=== PATIENT | male | born 1970 | race Caucasian/White ===

== ENCOUNTER 2016-09-26 06:13 | Emergency (ER) | payer MEDICARE, OTHER ==
[2016-09-26 06:18] VITALS: BP 157/103; PULSE 103; RESP 20; TEMP 97.2
[2016-09-26] MEDS ORDERED: LORazepam 2 MG/ML SYRINGE IM STA (06:24)
--- NOTE | 2016-09-26 06:26 | ED ---
General Adult HPI - General Chief complaint: Anxiety Stated complaint: poss overdose Time Seen by Provider: 09/26/16 06:20 Source: patient, RN notes reviewed Mode of arrival: ambulatory Limitations: no limitations - History of Present Illness Initial comments: Is a 46-year-old male who presents to the emergency department after having taken some acid approximately 2 hours prior to arrival. Patient states now he feels like he is having a panic attack and he can't settle down. Patient states he hasn't done this since he was a kid. Patient denies any other drug use or alcohol use tonight. Patient denies any physical complaints today. Patient denies headache patient denies numbness weakness. Patient denies any chest pain palpitations difficulty breathing shortness of breath per patient denies abdominal pain patient states he was mildly nauseous but has had no vomiting or diarrhea. Patient denies any other problems except feeling very anxious. - Related Data Home Medications Medication Instructions Recorded Confirmed Hydrocodone/Acetaminophen [[place] 1 tab PO Q6HR PRN 09/26/16 09/26/16 5-325] metFORMIN HCL [Glucophage] 500 mg PO TID 09/26/16 09/26/16 Allergies Allergy/AdvReac Type Severity Reaction Status Date / Time No Known Allergies Allergy Verified 09/26/16 06:18 Review of Systems ROS Statement: Those systems with pertinent positive or pertinent negative responses have been documented in the HPI. ROS Other: All systems not noted in ROS Statement are negative. Past Medical History Past Medical History: Diabetes Mellitus, Hypertension History of Any Multi-Drug Resistant Organisms: None Reported Past Surgical History: No Surgical Hx Reported Past Psychological History: Anxiety, Bipolar, Depression Smoking Status: Current every day smoker Past Alcohol Use History: None Reported Past Drug Use History: Marijuana General Exam - General Exam Comments Initial Comments: GENERAL: Patient is well-developed and well-nourished. Patient is nontoxic and well- hydrated and is in mild distress. ENT: Neck is soft and supple. No significant lymphadenopathy is noted. Oropharynx is clear. Moist mucous membranes. Neck has full range of motion without eliciting any pain. EYES: The sclera were anicteric and conjunctiva were pink and moist. Extraocular movements were intact and pupils were equal round and reactive to light. Eyelids were unremarkable. PULMONARY: Unlabored respirations. Good breath sounds bilaterally. No audible rales rhonchi or wheezing was noted. CARDIOVASCULAR: There is a regular rate and rhythm without any murmurs gallops or rubs. ABDOMEN: Soft and nontender with normal bowel sounds. No palpable organomegaly was noted. There is no palpable pulsatile mass. SKIN: Skin is clear with no lesions or rashes and otherwise unremarkable. NEUROLOGIC: Patient is alert and oriented x3. Cranial nerves II through XII are grossly intact. Motor and sensory are also intact. Normal speech, volume and content. Symmetrical smile. MUSCULOSKELETAL: Normal extremities with adequate strength and full range of motion. No lower extremity swelling or edema. No calf tenderness. LYMPHATICS: No significant lymphadenopathy is noted PSYCHIATRIC: Normal psychiatric evaluation. Normal interpersonal interactions appears functionally intact in deals appropriately with others. No signs of depression. Moderate anxiety Limitations: no limitations Course Vital Signs 09/26/16 06:15 Temperature 97.2 F L Pulse Rate 103 H Respiratory 20 Rate Blood Pressure 157/103 O2 Sat by Pulse 98 Oximetry Medical Decision Making - Medical Decision Making EKG shows normal sinus rhythm at 95 bpm. It was on a 42 QRS is 96 QT interval 362 QTC is 454. Patient EKG shows no ST segment elevation or depression or T- wave abdomen is noted. Disposition Clinical Impression: Acute anxiety Disposition: HOME SELF-CARE Instructions: Generalized Anxiety Disorder (ED) Referrals: Joe Tiwari MD [Primary Care Provider] - 1-2 days Time of Disposition: 06:26
[2016-09-26] MEDS ORDERED: LORazepam 1 MG TAB PO STA (06:27)
== END 2016-09-26 06:46 | disposition home or self-care (01) ==
LOC: EC 06:13
DX: F41.9 Anxiety disorder, unspecified (principal); E11.9 Type 2 diabetes mellitus without complications; Z79.84 Long term (current) use of oral hypoglycemic drugs; F17.200 Nicotine dependence, unspecified, uncomplicated
CPT/HCPCS: 99283; 96372; 93005; J2060

== ENCOUNTER 2023-11-12 15:59 | Emergency (ER) | payer MEDICARE, OTHER ==
[2023-11-12 16:42] VITALS: TEMP 98.6
--- NOTE | 2023-11-12 17:20 | ED ---
General Adult HPI - General Chief complaint: Dental/Oral Stated complaint: L Dental Abscess Time Seen by Provider: 11/12/23 16:35 Source: patient, RN notes reviewed, old records reviewed Mode of arrival: ambulatory Limitations: no limitations - History of Present Illness Initial comments: Is a 53-year-old male who presents emergency department complaining of chronic tooth pain. Sent here from urgent care for possible CT imaging of the face. He has no fevers or chills. No other acute complaints at this time. Pain has been ongoing for the last few months. Has not seen a dentist. Previously had swelling as well as signs of an abscess on the left side however he has had multiple courses of antibiotics and currently has no evidence of this at this time. States the left upper molar in the back has intermittent pain that is sensitive to warm and cold as well as to touch. Radiation of the pain towards the jaw. No other acute complaints at this time. Denies any headaches, blurry vision, congestion. Presents for further evaluation. - Related Data Home Medications Medication Instructions Recorded Confirmed Hydrocodone/Acetaminophen [[place] 1 tab PO Q6HR PRN 09/26/16 09/26/16 5-325] metFORMIN HCL [Glucophage] 500 mg PO TID 09/26/16 09/26/16 Previous Rx's Medication Instructions Recorded clindamycin HCL 300 mg PO TID 7 Days #21 cap 11/12/23 Allergies Allergy/AdvReac Type Severity Reaction Status Date / Time No Known Allergies Allergy Verified 11/12/23 16:33 Review of Systems ROS Statement: Those systems with pertinent positive or pertinent negative responses have been documented in the HPI. Review of Systems: CONST: Denies fever EYES: Denies blurry vision ENT: Endorses dental pain C/V: Denies Chest pain RESP: Denies shortness of breath GI: Denies abdominal pain : Denies dysuria SKIN: Denies rash. MSK: Denies joint pain. NEURO: Denies headache ROS Other: All systems not noted in ROS Statement are negative. Past Medical History Past Medical History: Diabetes Mellitus, Hypertension History of Any Multi-Drug Resistant Organisms: None Reported Past Surgical History: No Surgical Hx Reported Past Psychological History: Anxiety, Bipolar, Depression Past Alcohol Use History: None Reported Past Drug Use History: Marijuana General Exam - General Exam Comments Initial Comments: General: Appears in no acute distress. HEAD: Normal with no signs of head trauma. EYES: EOMI. pupils are 3 mm and equal bilaterally. Conjunctiva normal. ENT: Hearing grossly intact. Tender to palpation and percussion of the left p osterior most molar. No evidence of abscess. Bilateral TMs within normal limits. No sinus tenderness to percussion no facial swelling. No floor the mouth swelling. No evidence of Ludewig's angina. RESPIRATORY: No respiratory distress. C/V: Regular rate and rhythm. ABD: Abdomen is nondistended. EXT: No obvious deformity. SKIN: No rashes or lesions observed on exposed skin. NEURO: Alert and oriented. Limitations: no limitations Course Vital Signs 11/12/23 11/12/23 16:29 17:48 Temperature 98.6 F 98.6 F Pulse Rate 61 67 Respiratory 18 20 Rate Blood Pressure 110/75 116/70 O2 Sat by Pulse 97 99 Oximetry Medical Decision Making - Medical Decision Making Was pt. sent in by a medical professional or institution (, PA, RESORT KEEPER, urgent care, hospital, or snf...) When possible be specific @ -Sent by urgent care for evaluation of dental pain Did you speak to anyone other than the patient for history (EMS, parent, family, police, friend...)? What history was obtained from this source @ -No Did you review nursing and triage notes (agree or disagree)? Why? @ -I reviewed and agree with nursing and triage notes Were old charts reviewed (outside hosp., previous admission, EMS record, old EKG, old radiological studies, urgent care reports/EKG's, snf records)? Report findings @ -No old charts were reviewed Differential Diagnosis (chest pain, altered mental status, abdominal pain women, abdominal pain men, vaginal bleeding, weakness, fever, dyspnea, syncope, headache, dizziness, GI bleed, back pain, seizure, CVA, palpatations, mental health, musculoskeletal)? @ -Dental pain, cavity, tooth infection, this list is not all inclusive EKG interpreted by me (3pts min.). @ -None done X-rays interpreted by me (1pt min.). @ -None done CT interpreted by me (1pt min.). @ -None done U/S interpreted by me (1pt. min.). @ -None done What testing was considered but not performed or refused? (CT, X-rays, U/S, labs)? Why? @ -None What meds were considered but not given or refused? Why? @ -None Did you discuss the management of the patient with other professionals (professionals i.e. , ADAN, RESORT KEEPER, lab, RT, psych nurse, healthcare social worker, pre kindergarten teacher, teacher, sales promotion officer, showcase trimmer)? Give summary @ -No Was smoking cessation discussed for >3mins.? @ -No Was critical care preformed (if so, how long)? @ -No Were there social determinants of health that impacted care today? How? (Homelessness, low income, unemployed, alcoholism, drug addiction, transportation, low edu. Level, literacy, decrease access to med. care, detention, rehab)? @ -No Was there de-escalation of care discussed even if they declined (Discuss DNR or withdrawal of care, Hospice)? DNR status @ -No What co-morbidities impacted this encounter? (DM, HTN, Smoking, COPD, CAD, Cancer, CVA, ARF, Chemo, Hep., AIDS, mental health diagnosis, sleep apnea, m orbid obesity)? @ -None Was patient admitted / discharged? Hospital course, mention meds given and route, prescriptions, significant lab abnormalities, going to OR and other pertinent info. @ -Presents for chronic dental pain. Patient was sent here for possible CT imaging of the face. Patient has no evidence of orbital or periorbital cellulitis. He has no significant findings on exam other than tooth pain. I am concerned for possible cavity versus the need for root canal at this time. I did discuss with him as he is having no other systemic symptoms, no evidence of local infection, as well as no signs or symptoms of sinus involvement. I do not believe that CT imaging is of benefit at this point. He expressed understanding was in agreement the plan. He was asking for continuing an tibiotics as he states this does seem to help, and I am willing to provide him with a short course of clindamycin. He can use Tylenol Motrin for pain control at home. He was in agreement this plan. I recommended follow-up with dentistry and he was in agreement this plan. He will be given contact information for oral surgery. Patient was discharged home at this time. I will provide the patient with a prescription for clindamycin. I instructed the patient to follow up with their PCP in the next 1-3 days. I provided contact information for follow up with oral surgery. I explained that the patient should return to the emergency department if they experience any worsening symptoms. Strict return precautions were discussed with the patient. The patient expressed understanding of these instructions. I answered all questions that the patient had. The patient was discharged home in good condition with their prescriptions and follow up information. Undiagnosed new problem with uncertain prognosis? @ -No Drug Therapy requiring intensive monitoring for toxicity (Heparin, Nitro, Insulin, Cardizem)? @ -No Were any procedures done? @ -No Diagnosis/symptom? @ -Tooth ache Acute, or Chronic, or Acute on Chronic? @ -Acute Uncomplicated (without systemic symptoms) or Complicated (systemic symptoms)? @ -Uncomplicated Side effects of treatment? @ -No Exacerbation, Progression, or Severe Exacerbation? @ -No Poses a threat to life or bodily function? How? (Chest pain, [place], [place], pneumonia, PE, COPD, DKA, ARF, appy, cholecystitis, CVA, Diverticulitis, Homicidal, Suicidal, threat to staff... and all critical care pts) @ -No Disposition Clinical Impression: Toothache Disposition: HOME SELF-CARE Condition: Good Instructions (If sedation given, give patient instructions): Toothache (ED) Prescriptions: clindamycin HCL 300 mg PO TID 7 Days #21 cap Is patient prescribed a controlled substance at d/c from ED?: No Referrals: None,Stated [Primary Care Provider] - 1-2 days Chuy Yang DDS [STAFF PHYSICIAN] - 1-2 days Time of Disposition: 17:20
[2023-11-12] MEDS: dexAMETHasone 2 MG TAB PO STA (17:41)
[2023-11-12] MEDS: CLINDAMYCIN 150 MG CAP PO STA (17:41)
[2023-11-12 18:07] VITALS: BP 116/70; PULSE 67; RESP 20
== END 2023-11-12 17:51 | disposition home or self-care (01) ==
LOC: EC 15:59
DX: K08.89 Other specified disorders of teeth and supporting structures (principal); E11.9 Type 2 diabetes mellitus without complications; I10 Essential (primary) hypertension; F12.90 Cannabis use, unspecified, uncomplicated; Z86.59 Personal history of other mental and behavioral disorders; Z79.84 Long term (current) use of oral hypoglycemic drugs
CPT/HCPCS: 99282; J8540